=== PATIENT | male | born 1995 | race Two or more races ===

== ENCOUNTER 2018-04-13 03:56 | Emergency (ER) | payer MEDICAID, OTHER ==
[~2018-04-13] VITALS: Ht 185.4 cm; Wt 81.6 kg
[~2018-04-13 03:56] MED LIST: LITH150C6; QUET25TA37
[2018-04-13 05:06] LABS: Urine WBC None Seen /hpf (0 - 3)
[2018-04-13 05:15] LABS: Urine Bacteria NONE SEEN /hpf (None Seen); Urine Blood Negative /uL (Negative); Urine Hyaline Cast FEW /lpf (0 - 2); Urine Mucus FEW (None Seen); Urine Specific Gravity 1.005 (1.001-1.035)
[2018-04-13 07:53] VITALS: BP 150/69
== END 2018-04-13 08:57 | disposition home or self-care (01) ==
LOC: EDBD 03:56 → EDUNIT# 03:56 → ER 04:02
DX: S06.9X1A Unspecified intracranial injury with loss of consciousness of 30 minutes or less, initial encounter (principal); S01.81XA Laceration without foreign body of other part of head, initial encounter; S61.412A Laceration without foreign body of left hand, initial encounter; S61.411A Laceration without foreign body of right hand, initial encounter; F12.90 Cannabis use, unspecified, uncomplicated; Z79.899 Other long term (current) drug therapy; Y09 Assault by unspecified means; Y93.89 Activity, other specified; Y99.8 Other external cause status; Y92.89 Other specified places as the place of occurrence of the external cause
CPT/HCPCS: 70450; 71250; 72125; 74176; 81001

== ENCOUNTER 2018-11-22 11:02 | Emergency (ER) | payer MEDICAID ==
[~2018-11-22] VITALS: Ht 185.4 cm; Wt 74.8 kg
[2018-11-22 12:39] VITALS: BP 126/84
== END 2018-11-22 13:16 | disposition home or self-care (01) ==
LOC: ER 11:05
DX: S02.622A Fracture of subcondylar process of left mandible, initial encounter for closed fracture (principal); S02.66XA Fracture of symphysis of mandible, initial encounter for closed fracture; I10 Essential (primary) hypertension; F12.10 Cannabis abuse, uncomplicated; Z87.891 Personal history of nicotine dependence; Y04.2XXA Assault by strike against or bumped into by another person, initial encounter; Y93.89 Activity, other specified; Y92.098 Other place in other non-institutional residence as the place of occurrence of the external cause; Y99.8 Other external cause status
CPT/HCPCS: 70486

== ENCOUNTER 2021-04-23 21:52 | Emergency (ER) | payer MEDICAID ==
[~2021-04-23] VITALS: Ht 182.9 cm; Wt 104.3 kg
[2021-04-24] MEDS ORDERED: SODIUM CHLORIDE 0.9% 500 ML IVB ONE (00:15)
[2021-04-24] MEDS ORDERED: ONDANSETRON HCL 4 MG/2 ML VIAL IV ONE (00:15)
[2021-04-24] MEDS ORDERED: MORPHINE SULFATE 4 MG/ML SYR/VIAL IV ONE (00:15)
[2021-04-24 00:53] VITALS: BP 98/62
[2021-04-24 01:34] LABS: Hematocrit 41.2 % (41.0-53.0); Hemoglobin 14.2 g/dL (13.5-17.5); Mean Corpuscular Hemoglobin 32.2 pg (28.0-32.0); Mean Corpuscular Hgb Conc. 34.6 g/dL (32.0-36.0); Mean Corpuscular Volume 93.1 fL (80.0-100.0); Red Blood Cells 4.42 10^6/uL (4.5-5.90); Red Cell Distribution Width 15.1 % (11.8-14.3); White Blood Cell 9.8 10^3/uL (4.4-10.8)
[2021-04-24 01:38] LABS: INR 1.03 (0.9-1.15); Partial Thromboplastin Time 25.1 sec (23.6-33.0)
[2021-04-24 01:39] LABS: Basophils % (manual) 0 (0.0-2.0); Blast Cells 0; Eosinophils % (manual) 0 (0-7); Metamyelocytes % 0; Promyelocytes % 0; Reactive Lymphocytes 0
[2021-04-24 01:43] LABS: Albumin 3.7 g/dL (3.4-5.0); BUN/Creatinine Ratio 8.3; Calcium 7.6 mg/dL (8.5-10.1); Potassium 3.2 mmol/L (3.5-5.1)
[2021-04-24 01:46] LABS: Bilirubin, Total 0.3 mg/dL (0.2-1.0); Total Protein 7.1 g/dL (6.4-8.2)
[2021-04-24 02:45] LABS: Band Neutrophils % (manual) 21; Lymphocytes % (manual) 15 (10.0-50.0); Monocytes % (manual) 11 (0-12); Myelocytes % 2
== END 2021-04-24 01:09 | disposition home or self-care (01) ==
LOC: EDBD 21:52 → ER 21:54
DX: S36.029A Unspecified contusion of spleen, initial encounter (principal); K66.1 Hemoperitoneum; R51.9 Headache, unspecified; I10 Essential (primary) hypertension; F17.210 Nicotine dependence, cigarettes, uncomplicated; Z79.899 Other long term (current) drug therapy; V43.52XA Car driver injured in collision with other type car in traffic accident, initial encounter; Y93.89 Activity, other specified; Y92.410 Unspecified street and highway as the place of occurrence of the external cause; Y99.8 Other external cause status
CPT/HCPCS: 36415; 70450; 71250; 72125; 73560; 74176; 80053; 85007; 85025; 85027; 85610; 85730; 96361; 96374; 96375; 99285; J2270; J2405; J7040